=== PATIENT | male | born 1985 | race African-American/Black ===

== ENCOUNTER 2019-05-02 16:33 | Emergency (ER) | payer SELFPAY ==
[~2019-05-02] VITALS: Ht 172.7 cm; Wt 55.0 kg
[2019-05-02] MEDS ORDERED: SODIUM CHLORIDE 0.9% 1,000 ML IV ONE (19:57)
[2019-05-02 20:26] LABS: BASOPHILS % 0.6 % (0.0-2.0); HEMATOCRIT. 29.9 % (42.0-52.0); HEMOGLOBIN. 10.7 g/dL (14.0-18.0); LYMPHOCYTES % 33.5 % (20.0-50.0); MEAN CORPUSCULAR HEMOGLOBIN 31.8 pg (28.0-32.0); MEAN CORPUSCULAR VOLUME 88.9 fL (80.0-94.0); MONOCYTES % 11.5 % (2.0-8.0); NEUTROPHILS % 49.4 % (40.0-76.0); PLATELET 324 x1000/uL (130-400); RED BLOOD CELL COUNT 3.36 mill/uL (4.7-6.1); RED CELL DISTRIBUTION WIDTH 15.3 % (11.6-14.6)
[2019-05-02 20:28] LABS: CHLORIDE 109 mEq/L (98-107)
[2019-05-02] MEDS ORDERED: MORPHINE SULFATE 4 MG/ML CPJ (NOT FOR IM USE) IV ONE ×2 (20:45→21:30)
[2019-05-02 21:06] LABS: CLARITY URINE CLEAR (CLEAR); COLOR URINE YELLOW (YELLOW); KETONES URINE NEGATIVE (NEGATIVE); LEUKOCYTE ESTERASE URINE NEGATIVE (NEGATIVE); NITRITE URINE NEGATIVE (NEGATIVE); OCCULT BLOOD URINE NEGATIVE (NEGATIVE); PROTEIN URINE NEGATIVE (NEGATIVE); SPECIFIC GRAVITY URINE 1.015 (1.005-1.030)
[2019-05-02 21:16] LABS: *AMPHETAMINES SCREEN URINE NEGATIVE (NEGATIVE); *BARBITURATES SCREEN URINE NEGATIVE (NEGATIVE); *BENZODIAZEPINES SCREEN URINE NEGATIVE (NEGATIVE); *COCAINE SCREEN URINE NEGATIVE (NEGATIVE); METHADONE URINE SCREEN NEGATIVE (NEGATIVE); OPIATES URINE SCREEN NEGATIVE (NEGATIVE)
[2019-05-02 21:18] LABS: CANNABINOID URINE SCREEN NEGATIVE (NEGATIVE); PHENCYCLIDINE URINE SCREEN NEGATIVE (NEGATIVE)
[2019-05-02] MEDS ORDERED: IOHEXOL-350 100 ML BOTTLE ONE (23:22)
[2019-05-03] MEDS ORDERED: HYDROMORPHONE HCL/PF 2MG/ML CPJ IV ONE
[2019-05-03 01:14] VITALS: BP 110/65
== END 2019-05-03 01:15 | disposition home or self-care (01) ==
LOC: ER 16:33 → CANRESERV 05-03 02:10 → ENRESERV 05-03 02:10 → CANBEDREQ 05-03 02:24
DX: D57.00 Hb-SS disease with crisis, unspecified (principal); R07.9 Chest pain, unspecified; F12.10 Cannabis abuse, uncomplicated; F15.10 Other stimulant abuse, uncomplicated
CPT/HCPCS: 36415; 71275; 80053; 80305; 81003; 84484; 85025; 85044; 85379; 93005; 96374; 96375; 96376; 99284; J1170; J2270; J7030; Q9967; Z7610

== ENCOUNTER 2021-07-09 01:45 | Inpatient (IN) | payer SELFPAY ==
[~2021-07-09] VITALS: Ht 172.7 cm; Wt 65.3 kg
[2021-07-09] MEDS ORDERED: MORPHINE SULFATE 4 MG/ML CPJ (NOT FOR IM USE) IV STA (04:40)
[2021-07-09] MEDS ORDERED: ONDANSETRON HCL 4MG/2ML INJ IV STA (04:40)
[2021-07-09] MEDS ORDERED: SODIUM CHLORIDE 0.9% 1,000 ML IV ONE (04:45)
[2021-07-09 05:00] LABS: CHLORIDE 105 mEq/L (98-107)
[2021-07-09 06:44] LABS: BASOPHILS % 0.5 % (0.0-2.0); EOSINOPHILS % 1.5 % (0.0-5.0); HEMATOCRIT. 36.2 % (42.0-52.0); HEMOGLOBIN. 12.4 g/dL (14.0-18.0); LYMPHOCYTES % 21.3 % (20.0-50.0); MEAN CORPUSCULAR HEMOGLOBIN 31.5 pg (28.0-32.0); MEAN CORPUSCULAR VOLUME 92.2 fL (80.0-94.0); MEAN PLATELET VOLUME 7.9 fl (7.4-10.4); MONOCYTES % 9.5 % (2.0-8.0); NEUTROPHILS % 67.2 % (40.0-76.0); RED CELL DISTRIBUTION WIDTH 14.9 % (11.6-14.6)
[2021-07-09 06:47] LABS: RED BLOOD CELL COUNT 3.73 mill/uL (4.7-6.1)
[2021-07-09 06:48] LABS: PLATELET 349 x1000/uL (130-400)
[2021-07-09] MEDS ORDERED: MORPHINE SULFATE 4 MG/ML CPJ (NOT FOR IM USE) IV ONE (07:45)
[2021-07-09] MEDS ORDERED: MAGNESIUM/ALUMINUM HYDROXIDE/SIMETHICONE 30ML UDC PO PRN (10:15)
[2021-07-09] MEDS ORDERED: TRAMADOL 50MG TABLET PO PRN (10:15)
[2021-07-09] MEDS ORDERED: CLONIDINE 0.1MG TABLET PO PRN (10:15)
[2021-07-09] MEDS ORDERED: NITROGLYCERIN 0.4MG TABLET SL SL PRN (10:15)
[2021-07-09] MEDS ORDERED: GUAIFENESIN 200MG/10ML SUGAR FREE UDC PO PRN (10:15)
[2021-07-09] MEDS ORDERED: DOCUSATE SODIUM 100MG CAPSULE PO PRN (10:15)
[2021-07-09] MEDS ORDERED: ONDANSETRON HCL 4MG/2ML INJ IV PRN (10:15)
[2021-07-09] MEDS ORDERED: ACETAMINOPHEN 325MG TABLET PO PRN ×2 (10:15)
[2021-07-09] MEDS: SODIUM CHLORIDE 0.9% 1,000 ML IV SCH ×2 (10:40→15:11)
[2021-07-09 12:13] LABS: ETHANOL BLOOD < 10 mg/dL
[2021-07-09 12:23] LABS: FOLIC ACID (FOLATE) SERUM 14.2 ng/mL (>5.38)
[2021-07-09] MEDS: MORPHINE SULFATE 2 MG/ML CPJ (NOT FOR IM USE) IV PRN ×2 (15:44→20:03)
[2021-07-09] MEDS ORDERED: NALOXONE HCL 0.4MG/ML VIAL IV PRN (18:00)
[2021-07-09 18:42] LABS: *AMPHETAMINES SCREEN URINE NEGATIVE (NEGATIVE); *BARBITURATES SCREEN URINE NEGATIVE (NEGATIVE)
[2021-07-09 18:43] LABS: *BENZODIAZEPINES SCREEN URINE NEGATIVE (NEGATIVE); *COCAINE SCREEN URINE NEGATIVE (NEGATIVE); CANNABINOID URINE SCREEN NEGATIVE (NEGATIVE); METHADONE URINE SCREEN NEGATIVE (NEGATIVE); OPIATES URINE SCREEN PRESUMTIVE POSITIVE (NEGATIVE); PHENCYCLIDINE URINE SCREEN NEGATIVE (NEGATIVE)
[2021-07-09 20:00] VITALS: BP_SYST 120; BP_SYST 125; BP_DIAS 63; BP_DIAS 69
[2021-07-09] MEDS: FAMOTIDINE 20MG TABLET PO SCH (20:03)
[2021-07-09] MEDS ORDERED: ZOLPIDEM TARTRATE 5MG TABLET PO PRN (21:00)
[2021-07-09 21:34] LABS: CREATINE KINASE MB FRACTION 14.2 ng/mL (0.5-3.6)
[2021-07-09] MEDS: KETOROLAC 15MG/ML VIAL IV PRN (22:20)
[2021-07-09 23:53] LABS: CREATINE KINASE 25430 IU/L (39-308)
[2021-07-10] VITALS: BP 145/68
[2021-07-10 00:41] LABS: CREATINE KINASE MB FRACTION 12.8 ng/mL (0.5-3.6)
[2021-07-10 01:13] LABS: CREATINE KINASE 25410 IU/L (39-308)
[2021-07-10] MEDS: SODIUM CHLORIDE 0.9% 1,000 ML IV SCH ×4 (02:20→23:09)
[2021-07-10 04:00] VITALS: BP 102/41
[2021-07-10 06:37] LABS: BASOPHILS % 0.4 % (0.0-2.0); EOSINOPHILS % 2.2 % (0.0-5.0); HEMATOCRIT. 28.8 % (42.0-52.0); HEMOGLOBIN. 10.3 g/dL (14.0-18.0); LYMPHOCYTES % 29.4 % (20.0-50.0); MEAN CORPUSCULAR HEMOGLOBIN 32.3 pg (28.0-32.0); MEAN CORPUSCULAR VOLUME 90.3 fL (80.0-94.0); MEAN PLATELET VOLUME 7.1 fl (7.4-10.4); MONOCYTES % 13.5 % (2.0-8.0); NEUTROPHILS % 54.5 % (40.0-76.0); PLATELET 296 x1000/uL (130-400); RED BLOOD CELL COUNT 3.18 mill/uL (4.7-6.1); RED CELL DISTRIBUTION WIDTH 14.6 % (11.6-14.6)
[2021-07-10 06:41] LABS: CHLORIDE 109 mEq/L (98-107)
[2021-07-10] MEDS: FOLIC ACID 1MG TABLET PO SCH (08:53)
[2021-07-10] MEDS: FAMOTIDINE 20MG TABLET PO SCH ×2 (08:53→20:50)
[2021-07-10] MEDS: KETOROLAC 15MG/ML VIAL IV PRN ×3 (08:54→23:07)
[2021-07-10 09:37] VITALS: BP 117/64
[2021-07-10 12:07] VITALS: BP_SYST 103; BP_SYST 109; BP_DIAS 51; BP_DIAS 74
[2021-07-10 16:00] VITALS: BP 120/76
[2021-07-10 20:00] VITALS: BP 119/68
[2021-07-10] MEDS: MORPHINE SULFATE 2 MG/ML CPJ (NOT FOR IM USE) IV PRN (21:20)
[2021-07-11] VITALS: BP 118/64
[2021-07-11 03:49] VITALS: BP 110/62
[2021-07-11 05:45] VITALS: BP 110/62
[2021-07-11] MEDS: MORPHINE SULFATE 2 MG/ML CPJ (NOT FOR IM USE) IV PRN (05:45)
[2021-07-11 07:05] LABS: CHLORIDE 111 mEq/L (98-107)
[2021-07-11 07:18] LABS: CREATINE KINASE MB FRACTION 6.5 ng/mL (0.5-3.6)
[2021-07-11 07:27] LABS: BASOPHILS % 0.6 % (0.0-2.0); HEMATOCRIT. 28.7 % (42.0-52.0); HEMOGLOBIN. 10.2 g/dL (14.0-18.0); LYMPHOCYTES % 20.5 % (20.0-50.0); MEAN CORPUSCULAR HEMOGLOBIN 32.2 pg (28.0-32.0); MEAN CORPUSCULAR VOLUME 90.2 fL (80.0-94.0); MEAN PLATELET VOLUME 7.6 fl (7.4-10.4); MONOCYTES % 13.4 % (2.0-8.0); NEUTROPHILS % 62.5 % (40.0-76.0); PLATELET 295 x1000/uL (130-400); RED BLOOD CELL COUNT 3.18 mill/uL (4.7-6.1); RED CELL DISTRIBUTION WIDTH 14.6 % (11.6-14.6)
[2021-07-11 08:02] LABS: CREATINE KINASE 20931 IU/L (39-308)
[2021-07-11] MEDS: FAMOTIDINE 20MG TABLET PO SCH (08:46)
[2021-07-11] MEDS: FOLIC ACID 1MG TABLET PO SCH (08:46)
[2021-07-11] MEDS: SODIUM CHLORIDE 0.9% 1,000 ML IV SCH (10:18)
[2021-07-15 15:08] LABS: HGB A2 3.2 % (1.8-3.2); HGB C 50.5 % (0.0); HGB F 1.1 % (0.0-2.0); HGB F Reflexed % (0.0-2.0); HGB S 45.2 % (0.0); HGB S Reflexed % (0.0)
== END 2021-07-11 11:44 | disposition left against medical advice (07) | DRG 662 ==
LOC: ER 01:45 → MICUSO 09:46 → 6WST 17:49
PROVIDERS: ADMIT Internal Medicine; ATTEND Internal Medicine
DX: D57.00 Hb-SS disease with crisis, unspecified (principal); M62.82 Rhabdomyolysis; K52.9 Noninfective gastroenteritis and colitis, unspecified; Z82.49 Family history of ischemic heart disease and other diseases of the circulatory system; Z53.29 Procedure and treatment not carried out because of patient's decision for other reasons
CPT/HCPCS: 36415; 71045; 80053; 80305; 80320; 82550; 82553; 82607; 82746; 83021; 83036; 83615; 83735; 84100; 84145; 84484; 85025; 85044; 85660; 93970; 99285; J1885; J2270; J2405; J7030; G0480

== ENCOUNTER 2022-01-06 14:30 | Emergency (ER) | payer MEDICAID ==
[~2022-01-06] VITALS: Ht 172.7 cm; Wt 66.0 kg
[2022-01-06 14:41] VITALS: BP 118/52
[2022-01-06] MEDS ORDERED: FLUORESCEIN SODIUM 1MG/STRIP LEFTEYE ONE (15:00)
[2022-01-06] MEDS ORDERED: TETRACAINE 0.5% OPHTH DROPS 4ML LEFTEYE ONE (15:00)
== END 2022-01-06 20:04 | disposition left against medical advice (07) ==
LOC: ER 14:30
DX: H53.8 Other visual disturbances (principal); Z53.21 Procedure and treatment not carried out due to patient leaving prior to being seen by health care provider

== ENCOUNTER 2022-09-07 12:12 | Emergency (ER) | payer BC ==
[~2022-09-07] VITALS: Ht 167.6 cm; Wt 63.0 kg
[~2022-09-07 12:12] MED LIST: HYDR-4009 PO
[2022-09-07] MEDS ORDERED: MORPHINE SULFATE 4 MG/ML CPJ (NOT FOR IM USE) IV STA (14:53)
[2022-09-07] MEDS ORDERED: DIPHENHYDRAMINE 50MG/ML VIAL IV ONE ×2 (15:00→17:15)
[2022-09-07] MEDS ORDERED: SODIUM CHLORIDE 0.9% 1,000 ML IV ONE (15:00)
[2022-09-07 15:45] LABS: HEMATOCRIT. 32.2 % (42.0-52.0); HEMOGLOBIN. 11.8 g/dL (14.0-18.0); MEAN CORPUSCULAR HEMOGLOBIN 32.4 pg (28.0-32.0); MEAN CORPUSCULAR VOLUME 88.7 fL (80.0-94.0); MEAN PLATELET VOLUME 7.5 fl (7.4-10.4); PLATELET 350 x1000/uL (130-400); RED BLOOD CELL COUNT 3.63 mill/uL (4.7-6.1)
[2022-09-07 15:47] LABS: CLARITY URINE CLEAR (CLEAR); COLOR URINE YELLOW (YELLOW); KETONES URINE NEGATIVE (NEGATIVE); LEUKOCYTE ESTERASE URINE NEGATIVE (NEGATIVE); NITRITE URINE NEGATIVE (NEGATIVE); OCCULT BLOOD URINE NEGATIVE (NEGATIVE); PH URINE 7.5 (4.5-8.0); PROTEIN URINE NEGATIVE (NEGATIVE); SPECIFIC GRAVITY URINE 1.011 (1.005-1.030)
[2022-09-07 15:51] LABS: CHLORIDE 107 mEq/L (98-107)
[2022-09-07 15:53] LABS: INR 1.1; PROTHROMBIN TIME 11.9 sec (9.6-11.0)
[2022-09-07 15:59] LABS: ETHANOL BLOOD < 10 mg/dL
[2022-09-07 16:35] LABS: PLATELET ESTIMATE NORMAL
[2022-09-07 16:42] LABS: *AMPHETAMINES SCREEN URINE NEGATIVE (NEGATIVE); *BARBITURATES SCREEN URINE NEGATIVE (NEGATIVE); *BENZODIAZEPINES SCREEN URINE NEGATIVE (NEGATIVE); *COCAINE SCREEN URINE NEGATIVE (NEGATIVE); CANNABINOID URINE SCREEN NEGATIVE (NEGATIVE); METHADONE URINE SCREEN NEGATIVE (NEGATIVE); OPIATES URINE SCREEN PRESUMTIVE POSITIVE (NEGATIVE); PHENCYCLIDINE URINE SCREEN NEGATIVE (NEGATIVE)
[2022-09-07] MEDS ORDERED: MORPHINE SULFATE 4 MG/ML CPJ (NOT FOR IM USE) IV ONE (17:15)
[2022-09-07] MEDS ORDERED: MORP15TA67 MT (17:44)
[2022-09-07] MEDS ORDERED: IBUP-2028 MT (17:44)
[2022-09-07] MEDS ORDERED: TOPUD PO (17:44)
[2022-09-07 17:50] VITALS: BP 112/61
== END 2022-09-07 18:25 | disposition home or self-care (01) ==
LOC: ER 12:12
DX: D57.00 Hb-SS disease with crisis, unspecified (principal)
CPT/HCPCS: 36415; 71045; 80053; 80305; 80320; 81003; 83690; 85025; 85044; 85610; 86850; 86900; 86901; 93005; 96361; 96374; 96375; 96376; 99285; J1200; J2270; G0480